=== PATIENT | male | born 1995 | race Caucasian/White ===

== ENCOUNTER 2017-09-22 00:05 | Inpatient (IN) | payer OTHER ==
[2017-09-22] MEDS ORDERED: HYDROCODONE/APAP (5/325) TAB PO (01:00)
[2017-09-22] MEDS ORDERED: ONDANSETRON 4 MG INJ IV (01:00)
[2017-09-22] MEDS: metroNIDAZOLE 500 MG/NS (PMX) 100 ML IVPB ×4 (01:49→22:21)
[2017-09-22] MEDS: HYDROmorphONE 0.5 MG/0.5 ML SYG IV (01:51)
[2017-09-22] MEDS: SOD CHLORIDE 0.9% 1,000 ML IV ×4 (02:00→22:21)
[2017-09-22] MEDS: CIPROFLOXACIN 400MG/D5W 200 ML IVPB ×3 (03:11→20:22)
[2017-09-22] MEDS: PANTOPRAZOLE 40 MG INJ IV ×2 (05:12→18:39)
[2017-09-22 05:16] LABS: ADD MAN DIFF? NO
[2017-09-22 05:23] LABS: BASOPHIL # 0.1 10^3/ul (0.0-0.1); BASOPHILS % 0.3 % (0.0-2.0); EOSINOPHILS # 0.2 10^3/ul (0.0-0.5); EOSINOPHILS % 1.2 % (0.0-7.0); HEMATOCRIT 43.4 % (42.0-52.0); HEMOGLOBIN 14.4 g/dl (14.0-18.0); MEAN CORPUSCULAR HEMOGLOBIN 27.2 pg (29.0-33.0); MEAN CORPUSCULAR HGB CONC 33.2 g/dl (32.0-37.0); MEAN PLATELET VOLUME 10.2 fl (7.4-10.4); MONOCYTE # 1.2 10^3/ul (0.3-0.9); MONOCYTES % 6.5 % (0.0-11.0); NEUTROPHIL # 14.4 10^3/ul (1.6-7.5); NEUTROPHILS % 80.3 % (39.0-77.0); PLATELET COUNT 256 10^3/UL (140-415); RED BLOOD COUNT 5.29 10^6/ul (4.70-6.10); RED CELL DISTRIBUTION WIDTH 13.2 % (11.5-14.5)
[2017-09-22 05:45] LABS: ALANINE AMINOTRANSFERASE 39 IU/L (13-69); ALBUMIN 4.1 g/dl (3.3-4.9); ALBUMIN/GLOBULIN RATIO 1.17; ALKALINE PHOSPHATASE 69 IU/L (42-121); ANION GAP 16 (8-16); ASPARTATE AMINO TRANSFERASE 31 IU/L (15-46); BILIRUBIN,INDIRECT 1.2 mg/dl (0-1.1); BILIRUBIN,TOTAL 1.2 mg/dl (0.2-1.3); BLOOD UREA NITROGEN 9 mg/dl (7-20); CALCIUM 9.4 mg/dl (8.4-10.2); CARBON DIOXIDE 27 mmol/L (21-31); CHLORIDE 100 mmol/L (97-110); CREATININE 1.06 mg/dl (0.61-1.24); GLUCOSE 122 mg/dl (70-220); POTASSIUM 3.8 mmol/L (3.5-5.1); SODIUM 139 mmol/L (135-144); TOTAL PROTEIN 7.6 g/dl (6.1-8.1)
[2017-09-22] MEDS: ACETAMINOPHEN 325 MG TAB PO ×2 (07:04→15:37)
[2017-09-22 12:24] LABS: INR 1.26; PT RATIO 1.3
[2017-09-23 02:07] LABS: TROPONIN-I < 0.012 ng/ml (0.00-0.12)
[2017-09-23] MEDS: SOD CHLORIDE 0.9% 1,000 ML IV ×4 (04:32→21:45)
[2017-09-23] MEDS: metroNIDAZOLE 500 MG/NS (PMX) 100 ML IVPB ×3 (05:17→22:47)
[2017-09-23] MEDS: PANTOPRAZOLE 40 MG INJ IV ×2 (05:18→18:21)
[2017-09-23] MEDS: ACETAMINOPHEN 325 MG TAB PO ×2 (05:27→16:00)
[2017-09-23 06:19] LABS: TROPONIN-I < 0.012 ng/ml (0.00-0.12)
[2017-09-23] MEDS: CIPROFLOXACIN 400MG/D5W 200 ML IVPB ×2 (08:32→21:41)
[2017-09-23 13:37] LABS: ADD MAN DIFF? NO
[2017-09-23 13:41] LABS: WHITE BLOOD COUNT 14.4 10^3/ul (4.8-10.8)
[2017-09-23 13:41] LABS: BASOPHIL # 0.1 10^3/ul (0.0-0.1); BASOPHILS % 0.5 % (0.0-2.0); EOSINOPHILS # 0.5 10^3/ul (0.0-0.5); EOSINOPHILS % 3.1 % (0.0-7.0); HEMATOCRIT 38.7 % (42.0-52.0); HEMOGLOBIN 12.5 g/dl (14.0-18.0); LYMPHOCYTES # 2.6 10^3/ul (0.8-2.9); LYMPHOCYTES % 18.1 % (15.0-51.0); MEAN CORPUSCULAR HEMOGLOBIN 26.8 pg (29.0-33.0); MEAN CORPUSCULAR HGB CONC 32.3 g/dl (32.0-37.0); MEAN CORPUSCULAR VOLUME 82.9 fl (82.0-101.0); MEAN PLATELET VOLUME 9.7 fl (7.4-10.4); MONOCYTES % 6.7 % (0.0-11.0); NEUTROPHIL # 10.3 10^3/ul (1.6-7.5); NEUTROPHILS % 71.2 % (39.0-77.0); PLATELET COUNT 259 10^3/UL (140-415); RED BLOOD COUNT 4.67 10^6/ul (4.70-6.10); RED CELL DISTRIBUTION WIDTH 13.1 % (11.5-14.5)
[2017-09-23 14:01] LABS: ALANINE AMINOTRANSFERASE 28 IU/L (13-69); ALBUMIN 3.8 g/dl (3.3-4.9); ALBUMIN/GLOBULIN RATIO 1.15; ALKALINE PHOSPHATASE 62 IU/L (42-121); ANION GAP 15 (8-16); ASPARTATE AMINO TRANSFERASE 19 IU/L (15-46); BILIRUBIN,INDIRECT 0.6 mg/dl (0-1.1); BILIRUBIN,TOTAL 0.6 mg/dl (0.2-1.3); BLOOD UREA NITROGEN 12 mg/dl (7-20); CALCIUM 8.9 mg/dl (8.4-10.2); CARBON DIOXIDE 29 mmol/L (21-31); CHLORIDE 102 mmol/L (97-110); CREATININE 1.03 mg/dl (0.61-1.24); GLUCOSE 91 mg/dl (70-220); POTASSIUM 3.7 mmol/L (3.5-5.1); SODIUM 142 mmol/L (135-144); TOTAL PROTEIN 7.1 g/dl (6.1-8.1)
[2017-09-24] MEDS: SOD CHLORIDE 0.9% 1,000 ML IV ×3 (04:32→19:51)
[2017-09-24] MEDS: metroNIDAZOLE 500 MG/NS (PMX) 100 ML IVPB ×3 (05:43→22:46)
[2017-09-24] MEDS: PANTOPRAZOLE 40 MG INJ IV ×2 (05:44→17:27)
[2017-09-24 05:46] LABS: ADD MAN DIFF? NO
[2017-09-24 05:54] LABS: BASOPHIL # 0.1 10^3/ul (0.0-0.1); BASOPHILS % 0.5 % (0.0-2.0); EOSINOPHILS # 0.4 10^3/ul (0.0-0.5); EOSINOPHILS % 2.8 % (0.0-7.0); HEMATOCRIT 37.9 % (42.0-52.0); HEMOGLOBIN 12.5 g/dl (14.0-18.0); LYMPHOCYTES # 2.4 10^3/ul (0.8-2.9); LYMPHOCYTES % 15.7 % (15.0-51.0); MEAN CORPUSCULAR HEMOGLOBIN 27.4 pg (29.0-33.0); MEAN CORPUSCULAR VOLUME 83.1 fl (82.0-101.0); MEAN PLATELET VOLUME 9.8 fl (7.4-10.4); MONOCYTE # 1.1 10^3/ul (0.3-0.9); MONOCYTES % 6.9 % (0.0-11.0); NEUTROPHIL # 11.2 10^3/ul (1.6-7.5); NEUTROPHILS % 73.7 % (39.0-77.0); PLATELET COUNT 298 10^3/UL (140-415); RED BLOOD COUNT 4.56 10^6/ul (4.70-6.10); RED CELL DISTRIBUTION WIDTH 13.2 % (11.5-14.5)
[2017-09-24 05:54] LABS: WHITE BLOOD COUNT 15.2 10^3/ul (4.8-10.8)
[2017-09-24 06:11] LABS: ALANINE AMINOTRANSFERASE 31 IU/L (13-69); ALBUMIN 3.6 g/dl (3.3-4.9); ALBUMIN/GLOBULIN RATIO 1.12; ALKALINE PHOSPHATASE 64 IU/L (42-121); ANION GAP 12 (8-16); ASPARTATE AMINO TRANSFERASE 18 IU/L (15-46); BILIRUBIN,INDIRECT 0.4 mg/dl (0-1.1); BILIRUBIN,TOTAL 0.4 mg/dl (0.2-1.3); BLOOD UREA NITROGEN 9 mg/dl (7-20); CALCIUM 9.2 mg/dl (8.4-10.2); CARBON DIOXIDE 32 mmol/L (21-31); CHLORIDE 103 mmol/L (97-110); CREATININE 0.98 mg/dl (0.61-1.24); GLUCOSE 96 mg/dl (70-220); POTASSIUM 3.6 mmol/L (3.5-5.1); SODIUM 143 mmol/L (135-144); TOTAL PROTEIN 6.8 g/dl (6.1-8.1)
[2017-09-24] MEDS ORDERED: MIDAZOLAM 1 MG/ML 2 ML INJ (08:15)
[2017-09-24] MEDS ORDERED: PROPOFOL 20 ML ×2 (08:15→09:41)
[2017-09-24] MEDS ORDERED: FENTAnyl 50 MCG/ML VIAL (08:15)
[2017-09-24] MEDS ORDERED: ROCURONIUM 50 MG INJ ×2 (08:15→09:25)
[2017-09-24] MEDS ORDERED: SUCCINYLCHOLINE CHLORIDE 100 MG/5 ML SYG IV (08:15)
[2017-09-24] MEDS ORDERED: LIDOCAINE 1% (MDV) 20 ML INJ (08:17)
[2017-09-24] MEDS ORDERED: ROPIVACAINE 0.5 % 30 ML VIAL ×2 (08:22→08:51)
[2017-09-24] MEDS ORDERED: DIPHENHYDRAMINE 50 MG INJ IV (08:30)
[2017-09-24] MEDS ORDERED: PROCHLORPERAZINE 10 MG INJ IV (08:30)
[2017-09-24] MEDS ORDERED: HYDROmorphONE (0.2 MG/ML) 10ML SYG IV ×2 (08:30)
[2017-09-24] MEDS ORDERED: FENTAnyl 50 MCG/ML VIAL IV ×3 (08:30)
[2017-09-24] MEDS ORDERED: ONDANSETRON 4 MG INJ IV (08:30)
[2017-09-24] MEDS ORDERED: MEPERIDINE 25 MG INJ IV (08:30)
[2017-09-24] MEDS: CIPROFLOXACIN 400MG/D5W 200 ML IVPB ×2 (09:00→20:19)
[2017-09-24] MEDS ORDERED: LIDOCAINE 1% (MPF) 30 ML INJ (09:16)
[2017-09-24] MEDS ORDERED: CIPROFLOXACIN 400MG/D5W 200 ML (09:17)
[2017-09-24] MEDS ORDERED: ACETAMINOPHEN 1000MG/100ML IV 100 ML (09:18)
[2017-09-24] MEDS ORDERED: DEXAMETHASONE 4 MG/ML 1 ML INJ (09:24)
[2017-09-24] MEDS ORDERED: ONDANSETRON 4 MG INJ (09:24)
[2017-09-24] MEDS ORDERED: FAMOTIDINE 20 MG INJ (09:24)
[2017-09-24] MEDS ORDERED: HYDROmorphONE 2 MG/ML SYG (09:42)
[2017-09-24] MEDS: BUPIVACAINE 0.25% (MPF) 30 ML INJ (09:58)
[2017-09-24] MEDS ORDERED: SUGAMMADEX SODIUM 200 MG/2 ML VIAL IV ×2 (10:26→10:30)
[2017-09-24] MEDS: hydrALAzine 20 MG INJ IV ×3 (11:33→12:15)
[2017-09-24] MEDS: HYDROmorphONE (0.2 MG/ML) 10ML SYG IV (12:13)
[2017-09-24] MEDS: LABETALOL HCL 20MG INJ IV (13:01)
[2017-09-24] MEDS: HYDROmorphONE 0.5 MG/0.5 ML SYG IV ×2 (13:55→15:11)
[2017-09-24] MEDS ORDERED: hydrALAzine 20 MG INJ IV (14:00)
[2017-09-24] MEDS: KETOROLAC 15 MG INJ IV (19:53)
[2017-09-25 06:09] LABS: ADD MAN DIFF? NO; BASOPHILS % 0.2 % (0.0-2.0); EOSINOPHILS # 0.2 10^3/ul (0.0-0.5); EOSINOPHILS % 1.5 % (0.0-7.0); HEMATOCRIT 35.6 % (42.0-52.0); HEMOGLOBIN 11.8 g/dl (14.0-18.0); LYMPHOCYTES # 2.6 10^3/ul (0.8-2.9); LYMPHOCYTES % 20.2 % (15.0-51.0); MEAN CORPUSCULAR HEMOGLOBIN 27.8 pg (29.0-33.0); MEAN CORPUSCULAR HGB CONC 33.1 g/dl (32.0-37.0); MEAN CORPUSCULAR VOLUME 83.8 fl (82.0-101.0); MEAN PLATELET VOLUME 9.7 fl (7.4-10.4); NEUTROPHIL # 9.1 10^3/ul (1.6-7.5); NEUTROPHILS % 69.7 % (39.0-77.0); PLATELET COUNT 314 10^3/UL (140-415); RED BLOOD COUNT 4.25 10^6/ul (4.70-6.10); RED CELL DISTRIBUTION WIDTH 13.2 % (11.5-14.5)
[2017-09-25] MEDS: PANTOPRAZOLE 40 MG INJ IV ×2 (06:10→18:21)
[2017-09-25] MEDS: metroNIDAZOLE 500 MG/NS (PMX) 100 ML IVPB ×3 (06:10→22:33)
[2017-09-25] MEDS: SOD CHLORIDE 0.9% 1,000 ML IV ×3 (06:12→20:32)
[2017-09-25] MEDS: KETOROLAC 15 MG INJ IV ×2 (06:12→22:39)
[2017-09-25 06:51] LABS: PHOSPHORUS 4.4 mg/dl (2.5-4.9)
[2017-09-25 08:36] LABS: ALANINE AMINOTRANSFERASE 31 IU/L (13-69); ALBUMIN 3.2 g/dl (3.3-4.9); ALBUMIN/GLOBULIN RATIO 1.14; ALKALINE PHOSPHATASE 57 IU/L (42-121); ANION GAP 13 (8-16); ASPARTATE AMINO TRANSFERASE 32 IU/L (15-46); BILIRUBIN,INDIRECT 0.2 mg/dl (0-1.1); BILIRUBIN,TOTAL 0.2 mg/dl (0.2-1.3); BLOOD UREA NITROGEN 8 mg/dl (7-20); CARBON DIOXIDE 29 mmol/L (21-31); CHLORIDE 106 mmol/L (97-110); CREATININE 0.88 mg/dl (0.61-1.24); GLUCOSE 93 mg/dl (70-220); POTASSIUM 3.6 mmol/L (3.5-5.1); SODIUM 144 mmol/L (135-144)
[2017-09-25] MEDS: CIPROFLOXACIN 400MG/D5W 200 ML IVPB ×2 (09:20→20:25)
[2017-09-25] MEDS: HYDROmorphONE 0.5 MG/0.5 ML SYG IV (13:46)
[2017-09-25] MEDS: ACETAMINOPHEN 325 MG TAB PO (23:16)
[2017-09-26 05:17] LABS: ADD MAN DIFF? NO
[2017-09-26 05:26] LABS: BASOPHILS % 0.5 % (0.0-2.0); EOSINOPHILS # 0.2 10^3/ul (0.0-0.5); EOSINOPHILS % 2.9 % (0.0-7.0); HEMATOCRIT 35.4 % (42.0-52.0); HEMOGLOBIN 11.4 g/dl (14.0-18.0); LYMPHOCYTES # 2.1 10^3/ul (0.8-2.9); LYMPHOCYTES % 26.4 % (15.0-51.0); MEAN CORPUSCULAR HEMOGLOBIN 26.8 pg (29.0-33.0); MEAN CORPUSCULAR HGB CONC 32.2 g/dl (32.0-37.0); MEAN CORPUSCULAR VOLUME 83.1 fl (82.0-101.0); MEAN PLATELET VOLUME 9.7 fl (7.4-10.4); MONOCYTE # 0.7 10^3/ul (0.3-0.9); MONOCYTES % 8.7 % (0.0-11.0); NEUTROPHIL # 4.9 10^3/ul (1.6-7.5); NEUTROPHILS % 61.1 % (39.0-77.0); PLATELET COUNT 305 10^3/UL (140-415); RED BLOOD COUNT 4.26 10^6/ul (4.70-6.10); RED CELL DISTRIBUTION WIDTH 13.1 % (11.5-14.5)
[2017-09-26] MEDS: metroNIDAZOLE 500 MG/NS (PMX) 100 ML IVPB ×3 (05:40→21:37)
[2017-09-26] MEDS: SOD CHLORIDE 0.9% 1,000 ML IV ×2 (05:41→12:32)
[2017-09-26] MEDS: PANTOPRAZOLE 40 MG INJ IV ×2 (05:47→17:36)
[2017-09-26] MEDS: CIPROFLOXACIN 400MG/D5W 200 ML IVPB ×2 (09:14→20:34)
[2017-09-26] MEDS: BISACODYL 10 MG SUPP PR (15:24)
[2017-09-27 05:34] LABS: WHITE BLOOD COUNT 10.8 10^3/ul (4.8-10.8)
[2017-09-27 05:34] LABS: ADD MAN DIFF? NO; BASOPHIL # 0.1 10^3/ul (0.0-0.1); BASOPHILS % 0.6 % (0.0-2.0); EOSINOPHILS # 0.4 10^3/ul (0.0-0.5); EOSINOPHILS % 3.8 % (0.0-7.0); HEMATOCRIT 37.1 % (42.0-52.0); HEMOGLOBIN 12.1 g/dl (14.0-18.0); LYMPHOCYTES # 2.4 10^3/ul (0.8-2.9); LYMPHOCYTES % 22.6 % (15.0-51.0); MEAN CORPUSCULAR HEMOGLOBIN 26.9 pg (29.0-33.0); MEAN CORPUSCULAR HGB CONC 32.6 g/dl (32.0-37.0); MEAN CORPUSCULAR VOLUME 82.4 fl (82.0-101.0); MEAN PLATELET VOLUME 9.5 fl (7.4-10.4); MONOCYTE # 0.6 10^3/ul (0.3-0.9); MONOCYTES % 5.7 % (0.0-11.0); NEUTROPHIL # 7.2 10^3/ul (1.6-7.5); PLATELET COUNT 345 10^3/UL (140-415); RED CELL DISTRIBUTION WIDTH 13.1 % (11.5-14.5)
[2017-09-27 06:09] LABS: ANION GAP 16 (8-16); BLOOD UREA NITROGEN 12 mg/dl (7-20); CALCIUM 9.1 mg/dl (8.4-10.2); CARBON DIOXIDE 29 mmol/L (21-31); CHLORIDE 102 mmol/L (97-110); CREATININE 0.94 mg/dl (0.61-1.24); GLUCOSE 96 mg/dl (70-220); POTASSIUM 3.7 mmol/L (3.5-5.1); SODIUM 143 mmol/L (135-144)
[2017-09-27] MEDS: PANTOPRAZOLE 40 MG INJ IV (06:15)
[2017-09-27] MEDS: metroNIDAZOLE 500 MG/NS (PMX) 100 ML IVPB (06:15)
[2017-09-27] MEDS: CIPROFLOXACIN 400MG/D5W 200 ML IVPB (09:07)
== END 2017-09-27 12:34 | disposition home or self-care (01) | DRG 418 ==
LOC: MS1 00:05
PROVIDERS: Internal Medicine Nephrology
PROC: 0FT44ZZ Resection of Gallbladder, Percutaneous Endoscopic Approach (ICD-10-PCS; principal; 2017-09-24 08:00)
PROC: 0FB04ZX Excision of Liver, Percutaneous Endoscopic Approach, Diagnostic (ICD-10-PCS; 2017-09-24 08:00)
DX: K80.00 Calculus of gallbladder with acute cholecystitis without obstruction (principal); F84.5 Asperger's syndrome; R65.10 Systemic inflammatory response syndrome (SIRS) of non-infectious origin without acute organ dysfunction; K76.0 Fatty (change of) liver, not elsewhere classified; E66.9 Obesity, unspecified; Z68.33 Body mass index [BMI] 33.0-33.9, adult; R01.1 Cardiac murmur, unspecified; E80.6 Other disorders of bilirubin metabolism
CPT/HCPCS: 71045; 74181; 80048; 80053; 83735; 84100; 84484; 85025; 85610; 87040; 88304; 88307; 88313; 93005; 93306